=== PATIENT | male | born 1965 | race American Indian/Alaskan Native ===

== ENCOUNTER 2018-03-25 10:30 | Emergency (ER) | payer MEDICAID, OTHER ==
[2018-03-25 10:47] VITALS: BMI 31.3
[2018-03-25 10:48] VITALS: BP 149/99; PULSE 58; RESP 18; TEMP 98.3; O2SAT 98
[2018-03-25] MEDS ORDERED: Alum-Mag Hydrox-Simethicone Susp (30 mL) PO STA (11:39)
--- NOTE | 2018-03-25 11:42 | C.PDOC ---
History Of Present Illness 53 y/o male presents to the ED complaining of having loose stools for the last 3 days. Admits to eating fast food and [place] food regularly. Reports occasional vomiting, which is non-vomiting and non-bilious. Also has history of persistent narcotic use, but states current symptoms do not feel consistent with withdrawal. Otherwise he denies any associated fever, chills, urinary symptoms, or other complaints. Time Seen by Provider: 03/25/18 11:34 Chief Complaint (Nursing): GI Problem History Per: Patient History/Exam Limitations: no limitations Onset/Duration Of Symptoms: Days Current Symptoms Are (Timing): Still Present Past Medical History Reviewed: Historical Data, Nursing Documentation, Vital Signs Vital Signs: Last Vital Signs Temp 98.3 F 03/25/18 10:47 Pulse 58 L 03/25/18 10:47 Resp 18 03/25/18 10:47 BP 149/99 H 03/25/18 10:47 Pulse Ox 98 03/25/18 10:47 - Medical History PMH: Depression, Gastritis, Hypercholesterolemia Denies: Alzheimer's Disease, Asthma, Atrial Fibrillation, Bronchitis, CAD, Cardia Arrhythmia, CHF, COPD, Dementia, Emphysema, HIV, HTN, Hyperthyroidism, Hypothyroidism, Kidney Stones, Migraine, Mitral Valve Prolapse, Multiple Sclerosis, Parkinson's Disease, Peripheral Edema, Pneumonia, Pulmonary Embolism, Chronic Kidney Disease, Seizures, Sleep Apnea, TIA Surgical History: Denies: Pacemaker - [facility] Procedures INJECT/INFUSE NEC (11/19/13) Family History: States: [place], CAD, Diabetes, Hypertension - Social History Hx Alcohol Use: No Hx Substance Use: No (Patient denies) - Immunization History Hx Tetanus Toxoid Vaccination: No Hx Influenza Vaccination: No Hx Pneumococcal Vaccination: No Review Of Systems Except As Marked, All Systems Reviewed And Found Negative. Constitutional: Negative for: Fever, Chills, Sweats Eyes: Negative for: Vision Change Cardiovascular: Negative for: Chest Pain Respiratory: Negative for: Shortness of Breath Gastrointestinal: Positive for: Vomiting, Diarrhea Genitourinary: Negative for: Dysuria, Frequency, Incontinence, Hematuria Neurological: Negative for: Dizziness Psych: Negative for: Withdrawal Physical Exam - Physical Exam Appears: Non-toxic, No Acute Distress Skin: Normal Color, Warm, Dry Head: Atraumatic, Normacephalic Eye(s): bilateral: Normal Inspection (pupils appear normal), PERRL, EOMI Oral Mucosa: Moist Neck: Normal ROM, Supple Chest: Symmetrical Cardiovascular: Rhythm Regular, No Murmur Respiratory: Normal Breath Sounds, No Accessory Muscle Use Gastrointestinal/Abdominal: Bowel Sounds (normal), Soft, No Tenderness, No Distention, No Guarding Back: Normal Inspection, No CVA Tenderness Extremity: Bilateral: Atraumatic, Normal Color And Temperature, Normal ROM Neurological/Psych: Oriented x3, Normal Speech ED Course And Treatment O2 Sat by Pulse Oximetry: 98 (RA) Pulse Ox Interpretation: Normal Medical Decision Making Medical Decision Making: Plan: --Maalox Plus 30 ml PO --Zofran 4 mg PO --Pepcid 20 mg PO --Reassess after tx Final Impression: loose stools with occasional vomiting h/o narcotics use, continued pt does not feel this is c/w w/d s/s BRAT diet and pepcid/maalox educated. belly benign, normal VS's, no s/s of dehydration pt eloped prior to PO meds Disposition Doctor Will See Patient In The: Office Counseled Patient/Family Regarding: Studies Performed, Diagnosis - Disposition Referrals: [facility] [Outside] [facility] [Outside] [facility] [Outside] [facility] [Outside] Disposition: HOME/ ROUTINE Disposition Time: 11:41 Condition: GOOD Additional Instructions: BRAT diet- bananas, white rice, apples, toast/bread plenty of water/Gatorade follow-up in our outpatient Clinic or return to the ED as needed Instructions: Diarrhea in Adolescents and Adults, Nausea and Vomiting, Adult Forms: [facility] (Croatian) - Clinical Impression Clinical Impression: Vomiting, Diarrhea - Scribe Statement The provider has reviewed the documentation as recorded by the Scribe (Fátima Gallo) Provider Attestation: All medical record entries made by the Scribe were at my direction and personally dictated by me. I have reviewed the chart and agree that the record accurately reflects my personal performance of the history, physical exam, medical decision making, and the department course for this patient. I have also personally directed, reviewed, and agree with the discharge instructions and disposition.
== END 2018-03-25 11:45 | disposition home or self-care (01) ==
LOC: C.ER 10:30
DX: R19.7 Diarrhea, unspecified (principal); R11.10 Vomiting, unspecified

== ENCOUNTER 2018-08-31 08:27 | Emergency (ER) | payer MEDICAID, OTHER ==
[2018-08-31 08:27] VITALS: BMI 31.3
[2018-08-31 08:46] VITALS: RESP 18; TEMP 97.7; O2SAT 100
--- NOTE | 2018-08-31 09:07 | C.PDOC ---
History Of Present Illness WORSENING CP X 2 WEEKS. INITIALLY GEN SQUEEZING, NOW SHARP W OCC RADIATION L UE. ?ASSOC W EATING. NONEXERTIONAL. +OCC ASSOC DIZZY. PS S/P OUTPT STRESS W DR GABRIEL "SEV MONTHS AGO AND HE SAID IT WAS FINE". NONCOMPLIANT W CHOLESTEROL RX DUE TO LACK OF INSURANCE. NO OTHER ASSOC SX. NEG SMOKE EXAM NEG Time Seen by Provider: 08/31/18 08:55 Chief Complaint (Nursing): Chest Pain History Per: Patient History/Exam Limitations: no limitations Onset/Duration Of Symptoms: Days Current Symptoms Are (Timing): Still Present Severity: Moderate Past Medical History Reviewed: Historical Data, Nursing Documentation, Vital Signs Vital Signs: Last Vital Signs Temp 97.7 F 08/31/18 08:35 Pulse 73 08/31/18 08:35 Resp 18 08/31/18 08:35 BP 127/77 08/31/18 08:35 Pulse Ox 100 08/31/18 08:35 - Medical History PMH: Depression, Gastritis, Hypercholesterolemia Denies: Alzheimer's Disease, Asthma, Atrial Fibrillation, Bronchitis, CAD, Cardia Arrhythmia, CHF, COPD, Dementia, Diabetes, Emphysema, Hepatitis, HIV, H [place], Hyperthyroidism, Hypothyroidism, Kidney Stones, Migraine, Mitral Valve Prolapse, Multiple Sclerosis, Parkinson's Disease, Peripheral Edema, Pneumonia, Pulmonary Embolism, Chronic Kidney Disease, Seizures, Sexually Transmitted Disease, Sleep Apnea, TIA Surgical History: Denies: Pacemaker - [facility] Procedures INJECT/INFUSE NEC (11/19/13) Family History: States: [place], CAD, Diabetes, Hypertension - Social History Hx Alcohol Use: No Hx Substance Use: No (Patient denies) - Immunization History Hx Tetanus Toxoid Vaccination: No Hx Influenza Vaccination: No Hx Pneumococcal Vaccination: No Review Of Systems Except As Marked, All Systems Reviewed And Found Negative. Cardiovascular: Positive for: Chest Pain Respiratory: Negative for: Shortness of Breath Gastrointestinal: Negative for: Nausea, Vomiting, Abdominal Pain Neurological: Positive for: Dizziness (occasional) Physical Exam - Physical Exam Appears: Non-toxic Skin: Normal Color, Warm, Dry Head: Atraumatic, Normacephalic Eye(s): bilateral: Normal Inspection Chest: Symmetrical, No Tenderness Cardiovascular: Rhythm Regular Respiratory: Normal Breath Sounds, No Rales, No Rhonchi, No Wheezing Neurological/Psych: Oriented x3, Normal Speech ED Course And Treatment - Laboratory Results Result Diagrams: 08/31/18 10:03 08/31/18 10:03 ECG: Interpreted By Me ECG Rhythm: Sinus Bradycardia ECG Interpretation: Normal Rate From EC O2 Sat by Pulse Oximetry: 100 (RA) Pulse Ox Interpretation: Normal - Radiology CXR: Interpreted by Me, Viewed By Me CXR Interpretation: Yes: No Acute Disease Reevaluation Time: 11:01 Reassessment Condition: Improved (CP RESOLVED. PT OFFERED ADMISSION, STATES CANNOT BE ADMITTED DUE TO FAMILIAL OBLIGATION. CLINIC REFERRAL) Disposition Counseled Patient/Family Regarding: Studies Performed, Diagnosis, Need For Followup - Disposition Referrals: [facility] [Outside] [facility] [Outside] Disposition: HOME/ ROUTINE Disposition Time: 11:01 Condition: IMPROVED Additional Instructions: TAKE ASPIRIN 81 MG DAILY. YOU HAVE BEEN OFFERED ADMISSION FOR CHEST PAIN EVALUATION BUT HAVE REFUSED. RETURN IF WORSENING SYMPTOMS. FOLLOW UP CLINIC THIS WEEK Instructions: Chest Pain (DC) Forms: [facility] (Turkish), Work Excuse - Clinical Impression Clinical Impression: Chest pain - Scribe Statement The provider has reviewed the documentation as recorded by the Amol De Jesus Provider Attestation: All medical record entries made by the Kamiibe were at my direction and personally dictated by me. I have reviewed the chart and agree that the record accurately reflects my personal performance of the history, physical exam, medical decision making, and the department course for this patient. I have also personally directed, reviewed, and agree with the discharge instructions and disposition.
[2018-08-31 10:06] LABS: BASO # 0.1 K/uL (0.0-0.2); BASO % 1.6 % (0.0-2.0); EOS % 1.1 % (0.0-4.0); HEMOGLOBIN 14.4 g/dL (12.0-18.0); LYMPH # 1.5 K/uL (1.0-4.3); LYMPH % 34.9 % (20.0-40.0); MEAN CELL VOLUME 90.8 fL (80.0-94.0); MEAN PLATELET VOLUME 7.5 fL (7.2-11.7); MONO # 0.5 K/uL (0.0-0.8); MONO % 11.2 % (0.0-10.0); NEUT # 2.1 K/uL (1.8-7.0); NEUT % 51.2 % (50.0-75.0); RBC 4.82 Mil/uL (4.40-5.90); RED CELL DISTRIBUTION WIDTH 14.4 % (11.5-14.5); WHITE BLOOD COUNT 4.2 K/uL (4.8-10.8)
[2018-08-31 10:23] LABS: ALB/GLOB RATIO 1.3 (1.0-2.1); ALBUMIN 4.6 g/dL (3.5-5.0); ALT/SGPT 36 U/L (21-72); AST/SGOT 28 U/L (17-59); BLOOD UREA NITROGEN 19 mg/dL (9-20); GFR NON-AFRICAN AMERICAN > 60
[2018-08-31 11:17] VITALS: BP 120/80; PULSE 68
--- NOTE | 2018-08-31 12:38 | RAD ---
Date of service: 08/31/2018 HISTORY: Chest pain COMPARISON: No prior. TECHNIQUE: Chest PA and lateral views FINDINGS: LUNGS: No active pulmonary disease. PLEURA: No significant pleural effusion identified. No pneumothorax apparent. CARDIOVASCULAR: No aortic atherosclerotic calcification present. Normal cardiac size. No pulmonary vascular congestion. OSSEOUS STRUCTURES: No significant abnormalities. VISUALIZED UPPER ABDOMEN: Normal. OTHER FINDINGS: None. IMPRESSION: No active disease.
--- NOTE | 2018-09-01 18:31 | CARD ---
APPROVED REPORT Date of service: 08/31/2018 EKG Measurement Heart [id number] <Conclusion> Sinus bradycardia Otherwise normal ECG
== END 2018-08-31 11:18 | disposition home or self-care (01) ==
LOC: C.ER 08:27
DX: R07.9 Chest pain, unspecified (principal); E78.00 Pure hypercholesterolemia, unspecified